=== PATIENT | male | born 1965 | race Asian ===

== ENCOUNTER 2019-08-05 07:36 | Emergency (ER) | payer OTHER ==
[~2019-08-05] VITALS: Ht 170.2 cm; Wt 72.6 kg
[~2019-08-05 07:36] MED LIST: HYDROXYCHLOROQ200 M3 PO; PRILOSEC20 MG PO; XANAX0.25 MG PO
[2019-08-05 07:40] VITALS: BP 145/89; Ht 170.2 cm; Wt 72.6 kg
== END 2019-08-05 08:28 | disposition home or self-care (01) ==
LOC: ED 07:36
DX: T23.102A Burn of first degree of left hand, unspecified site, initial encounter (principal); Z88.2 Allergy status to sulfonamides; Z88.8 Allergy status to other drugs, medicaments and biological substances; X08.8XXA Exposure to other specified smoke, fire and flames, initial encounter; Y93.89 Activity, other specified; Y92.89 Other specified places as the place of occurrence of the external cause; Y99.8 Other external cause status